=== PATIENT | female | born 1970 | race African-American/Black ===

== ENCOUNTER 2016-07-21 23:13 | Emergency (ER) | payer OTHER ==
[2016-07-21 23:28] VITALS: BP 147/85; PULSE 91; RESP 18; TEMP 98.2
[2016-07-22] MEDS ORDERED: KETOROLAC 60 MG/2 ML VIAL IM STA (00:02)
--- NOTE | 2016-07-22 00:06 | ED ---
General Adult HPI - General Chief complaint: Back Pain/Injury Stated complaint: back & leg pain Time Seen by Provider: 07/21/16 23:51 Source: patient Mode of arrival: ambulatory Limitations: no limitations - History of Present Illness Initial comments: Patient 46-year-old female seen in the past medical history for chronic low back pain who presents emergency room today with chief complaint of exacerbation of her chronic pain. Does admit to pain that radiates down to the right calf. States worse with certain movements. Denies any specific injury or trauma. Denies any bowel or bladder incontinence retention. Denies any saddle anesthesia. Patient denies any recent fever, chills, shortness of breath , chest pain, abdominal pain, nausea or vomiting, dysuria or hematuria, constipation or diarrhea, headaches or visual changes, or any other complaints. - Related Data Home Medications Medication Instructions Recorded Confirmed traMADol HCl [Ultram] 50 mg PO BID 10/30/14 01/11/16 HYDROcodone/APAP 7.5-325MG [[place]ale 1 tab PO Q8HR PRN 07/01/15 01/11/16 7.5-325] Naproxen [Naprosyn] 500 mg PO Q12HR PRN 07/01/15 01/11/16 Previous Rx's Medication Instructions Recorded Cyclobenzaprine [Flexeril] 5 mg PO TID #9 tablet 01/11/16 HYDROcodone/APAP 5-325MG [Dale 1 - 2 tab PO Q4H PRN #20 tab 01/11/16 5-325] methylPREDNISolone Dose Pack 4 mg PO DIRECTED #21 package 01/11/16 [Medrol Dose Pack] Cyclobenzaprine [Flexeril] 10 mg PO TID #20 tab 07/22/16 Dexamethasone 0.75 mg PO DIRECTED #12 tablet 07/22/16 Hydrocodone/Acetaminophen [[place]ale 1 each PO Q6HR PRN #20 tab 07/22/16 5-325] Ibuprofen [Motrin] 600 mg PO Q6HR PRN #40 day 07/22/16 Allergies Allergy/AdvReac Type Severity Reaction Status Date / Time No Known Allergies Allergy Verified 07/21/16 23:28 Review of Systems ROS Statement: Those systems with pertinent positive or pertinent negative responses have been documented in the HPI. ROS Other: All systems not noted in ROS Statement are negative. Past Medical History Past Medical History: Thyroid Disorder Additional Past Medical History / Comment(s): migraines, uterine fibroids, thyroid nodules, degenerative disks History of Any Multi-Drug Resistant Organisms: None Reported Additional Past Surgical History / Comment(s): laprascopic exam, spinal steroid injection 07/21/15 (pt notified Dr Bunn office) Past Anesthesia/Blood Transfusion Reactions: No Reported Reaction Past Psychological History: No Psychological Hx Reported Smoking Status: Current some day smoker Past Alcohol Use History: None Reported, Rare Additional Past Alcohol Use History / Comment(s): started smoking 1995, smokes 4 -5 cigarettes per day Past Drug Use History: None Reported - Past Family History Mother Family Medical History: No Reported History General Exam - General Exam Comments Initial Comments: General: The patient is awake and alert, in no distress, and does not appear acutely ill. Eye: Pupils are equal, round and reactive to light, extra-ocular movements are intact. No nystagmus. There is normal conjunctiva bilaterally. No signs of icterus. Ears, nose, mouth and throat: There are moist mucous membranes and no oral lesions. Neck: The neck is supple, there is no tenderness or JVD. Cardiovascular: There is a regular rate and rhythm. No murmur, rub or gallop is appreciated. Respiratory: Lungs are clear to auscultation, respirations are non-labored, breath sounds are equal. No wheezes, stridor, rales, or rhonchi. Musculoskeletal: Normal appearance of the thoracic, lumbar spine. No step- offs form is appreciated. Patient has mild tenderness lower lumbar spine paravertebrally to the right side. Strength 5/5. Sensation intact. Pulses equal bilaterally 2+. Neurological: A&O x 3. CN II-XII intact, There are no obvious motor or sensory deficits. Coordination appears grossly intact. Speech is normal. Skin: Skin is warm and dry and no rashes or lesions are noted. Psychiatric: Cooperative, appropriate mood & affect, normal judgment. Limitations: no limitations Course Vital Signs 07/21/16 23:26 Temperature 98.2 F Pulse Rate 91 Respiratory 18 Rate Blood Pressure 147/85 O2 Sat by Pulse 99 Oximetry Medical Decision Making - Medical Decision Making Is advised to use medications advised muscle relaxants and pain medicines may make her drowsy. Advised to follow-up family doctor she does admit she has an MRI scheduled next week. Disposition Clinical Impression: Acute exacerbation of chronic low back pain Disposition: HOME SELF-CARE Condition: Good Instructions: Chronic Back Pain (ED) Additional Instructions: Please use medication as discussed. Please follow-up with family doctor in the next 2 days of symptoms have not improved. Please return to emergency room if the symptoms increase or worsen or for any other concerns. Prescriptions: Cyclobenzaprine [Flexeril] 10 mg PO TID #20 tab Dexamethasone 0.75 mg PO DIRECTED #12 tablet Hydrocodone/Acetaminophen [Dale 5-325] 1 each PO Q6HR PRN #20 tab PRN Reason: Pain Ibuprofen [Motrin] 600 mg PO Q6HR PRN #40 day PRN Reason: Pain Time of Disposition: 00:05
== END 2016-07-22 00:17 | disposition home or self-care (01) ==
LOC: EC 23:13
DX: G89.29 Other chronic pain (principal); M54.5 Low back pain; Z79.899 Other long term (current) drug therapy; Z79.891 Long term (current) use of opiate analgesic; F17.210 Nicotine dependence, cigarettes, uncomplicated
CPT/HCPCS: 99283; 96372; J1885

== ENCOUNTER → 2016-07-26 | Outpatient (CLI) | payer OTHER ==
--- NOTE | 2016-07-26 10:01 | MR ---
EXAMINATION TYPE: MR lumbar spine wo/w con DATE OF EXAM: 07/26/2016 8:43 AM COMPARISON: Lumbar spine x-ray January 11, 2016. HISTORY: Disc disease per order. Low back pain causing pain into bilateral legs, right greater than l eft 8.4 years per patient. TECHNIQUE: Multiplanar, multisequence images of the lumbar spine is performed without and with IV contrast, util izing 14 mL intravenous MultiHance FINDINGS: Sagittal images of the lumbar spine show vertebral body heights and alignment to appear sat isfactory. Disc desiccation L4-L5 and L5-S1 levels is seen. Mild disc space narrowing L5-S1 level is redemonstrated. No large posterior disc herniations are seen on sagittal images. The conus medullaris is normal in position and signal ending at mid L1 vertebral body level. The bone marrow signal inte nsity is within normal limits. Some enhancement of the posterior L4 disc space is present, nonspecifi c finding as there is no adjacent ossific or soft tissue enhancement. Increased signal consistent wit h annular tear is present at this level. Survey images show 1.1 cm round low intense lesion in uterus likely fibroid on image 2 series 601. Th ere is 2.8 cm round low intense lesion left adnexa could reflect ovarian cyst. Sagittal survey shows round low intense lesions in the cervix likely reflecting nabothian cysts. Probable fibroids are conf irmed in the posterior superior myometrium on sagittal images with well-defined T2 hypointense lesion s present. Findings could be correlated with pelvic ultrasound if desired. Axial images show the T12-L1, L1-L2, and L2-L3 levels to appear within normal limits. Axial images at the L3-L4 level show broad-based central disc protrusion mildly effacing anterior the ye sac on axial image 13. Bilateral neural foramina are patent. Axial images at the L4-L5 level show mild facet arthropathy bilaterally. There is mild central disc p rotrusion which is enhancing. Spinal canal is fairly well-maintained. Bilateral neural foramina are p atent. Axial images at the L5-S1 level show moderate facet degenerative changes bilaterally. Spinal canal is preserved. Bilateral neural foramina remain patent. A 3.2 cm cystic lesion left adnexa is partially imaged on sagittal image 2. There are small thin-wall ed nonenhancing T2 hyperintense lesions consistent with simple cysts in both kidneys. IMPRESSION: Multilevel degenerative changes in the lower lumbar spine as detailed above. Nonspecific enhancement of posterior disc protrusion L4-L5 level is noted. Genitourinary findings as detailed abo ve suspicious for uterine fibroids and probable simple left ovarian cyst. Consider pelvic ultrasound confirmation.
== END | disposition home or self-care (01) ==
LOC: RADMRIMAIN 07:50
PROVIDERS: ATTEND Internal Medicine Rheumatology
DX: M51.26 Other intervertebral disc displacement, lumbar region (principal); M47.816 Spondylosis without myelopathy or radiculopathy, lumbar region
CPT/HCPCS: 72158; A9577

== ENCOUNTER 2017-02-03 01:12 | Emergency (ER) | payer OTHER ==
[2017-02-03] MEDS ORDERED: IPRATROPIUM-ALBUTEROL 3 ML NEB INHALATION STA (01:33)
[2017-02-03] MEDS ORDERED: HYDROcodone/APAP 5-325MG 1 EACH TAB PO STA (01:38)
--- NOTE | 2017-02-03 01:54 | ED ---
SOB HPI - General Chief Complaint: Shortness of Breath Stated Complaint: Chest tightness,TIFFANIE Time Seen by Provider: 02/03/17 01:32 Source: patient Mode of arrival: ambulatory Limitations: no limitations - History of Present Illness Initial Comments: 47-year-old male patient presented to emergency department today with complaints of shortness of breath and chest tightness. Patient states that over the last 4 days she has had nasal congestion and green nasal drainage. Patient states that yesterday morning she woke up coughing with chest tightness and wheezing. Patient states that she is coughing up yellow sputum. She states she does feel mildly short of breath. She states that she has felt chilled however denies any fever. She denies any history of lung problems, denies use of inhalers or nebulizers. States that she does smoke cigarettes. Patient denies any abdominal pain, nausea, vomiting, diarrhea, constipation, numbness, tingling, weakness, hematuria, headache, or visual changes. She does report low back pain but states this is chronic. - Related Data Previous Rx's Medication Instructions Recorded Hydrocodone/Acetaminophen [[place] 1 each PO Q6HR PRN #20 tab 07/22/16 5-325] Albuterol Sulfate [Proair Hfa] 1 - 2 puff INHALATION Q6HR PRN #1 02/03/17 inhaler Levofloxacin [Levaquin] 500 mg PO DAILY #10 tab 02/03/17 predniSONE 50 mg PO DAILY #5 tab 02/03/17 Allergies Allergy/AdvReac Type Severity Reaction Status Date / Time No Known Allergies Allergy Verified 02/03/17 01:19 Review of Systems ROS Statement: Those systems with pertinent positive or pertinent negative responses have been documented in the HPI. ROS Other: All systems not noted in ROS Statement are negative. Past Medical History Past Medical History: Thyroid Disorder Additional Past Medical History / Comment(s): migraines, uterine fibroids, thyroid nodules, degenerative disks History of Any Multi-Drug Resistant Organisms: None Reported Additional Past Surgical History / Comment(s): laprascopic exam, spinal steroid injection 07/21/15 (pt notified Dr Bunn office) Past Anesthesia/Blood Transfusion Reactions: No Reported Reaction Past Psychological History: No Psychological Hx Reported Smoking Status: Current some day smoker Past Alcohol Use History: None Reported Past Drug Use History: None Reported - Past Family History Mother Family Medical History: No Reported History General Exam Limitations: no limitations General appearance: alert, in no apparent distress Eye exam: Present: normal appearance, PERRL, EOMI. Absent: scleral icterus, conjunctival injection, periorbital swelling ENT exam: Present: normal exam, normal oropharynx, mucous membranes moist Respiratory exam: Present: normal lung sounds bilaterally, wheezes (Coarse expiratory wheezes noted throughout all posterior lung ceron). Absent: respiratory distress, rales, rhonchi, stridor Cardiovascular Exam: Present: normal rhythm, tachycardia, normal heart sounds. Absent: regular rate, systolic murmur, diastolic murmur, rubs, gallop, clicks GI/Abdominal exam: Present: soft, normal bowel sounds. Absent: distended, tenderness, guarding, rebound, rigid Back exam: Present: normal inspection Neurological exam: Present: alert, oriented X3, CN II-XII intact Psychiatric exam: Present: normal affect, normal mood Skin exam: Present: warm, dry, intact, normal color. Absent: rash Course Vital Signs 02/03/17 02/03/17 02/03/17 01:15 01:33 01:35 Temperature 97.8 F Pulse Rate 103 H 100 Respiratory 20 18 Rate Blood Pressure 136/81 O2 Sat by Pulse 96 Oximetry 02/03/17 02/03/17 02/03/17 01:52 02:04 04:47 Temperature 99.7 F H Pulse Rate 97 79 Respiratory 20 Rate Blood Pressure 119/66 O2 Sat by Pulse 97 Oximetry Medical Decision Making - Medical Decision Making 47-year-old female patient presents to emergency department today for evaluation of cough, congestion, and chest tightness. Labs were reviewed and did not show any acute abnormalities. Two-view chest x-ray was negative for any acute cardiopulmonary processes however did show 4 mm nodule on the left lung, patient has been advised for a follow-up study in to see her primary care physician for this. Patient discharged home with a prescription for albuterol inhaler, prednisone, and Levaquin. Patient was given IV Solu-Medrol and oral dose of Levaquin prior to discharge tonight. Patient instructed to follow up with her primary care physician for recheck in 1-2 days. Instructed to return here immediately for any new, worsening, or concerning symptoms. Patient verbalizes understanding and agrees with this plan. - Lab Data Result diagrams: 02/03/17 02:51 02/03/17 02:51 Lab Results 02/03/17 02/03/17 02/03/17 Range/Units 02:51 02:51 02:51 WBC 8.8 (3.8-10.6) k/uL RBC 5.12 (3.80-5.40) m/uL Hgb 14.3 (11.4-16.0) gm/dL Hct 45.6 (34.0-46.0) % MCV 89.0 (80.0-100.0) fL MCH 27.9 (25.0-35.0) pg MCHC 31.4 (31.0-37.0) g/dL RDW 15.3 (11.5-15.5) % Plt Count 291 (150-450) k/uL Neutrophils % 61 % Lymphocytes % 27 % Monocytes % 5 % Eosinophils % 4 % Basophils % 1 % Neutrophils # 5.3 (1.3-7.7) k/uL Lymphocytes # 2.4 (1.0-4.8) k/uL Monocytes # 0.5 (0-1.0) k/uL Eosinophils # 0.4 (0-0.7) k/uL Basophils # 0.1 (0-0.2) k/uL Sodium 141 (137-145) mmol/L Potassium 4.3 (3.5-5.1) mmol/L Chloride 105 (98-107) mmol/L Carbon Dioxide 24 (22-30) mmol/L Anion Gap 12 mmol/L BUN 14 (7-17) mg/dL Creatinine 0.70 (0.52-1.04) mg/dL Est GFR (MDRD) Af Amer >60 (>60 ml/min/1.73 sqM) Est GFR (MDRD) Non-Af >60 (>60 ml/min/1.73 sqM) Glucose 99 (74-99) mg/dL Calcium 10.3 H (8.4-10.2) mg/dL Total Bilirubin 0.6 (0.2-1.3) mg/dL AST 15 (14-36) U/L ALT 27 (9-52) U/L Alkaline Phosphatase 85 (38-126) U/L Troponin I <0.012 (0.000-0.034) ng/mL Total Protein 7.7 (6.3-8.2) g/dL Albumin 4.6 (3.5-5.0) g/dL - Radiology Data Radiology results: report reviewed, image reviewed Two-view x-ray of the test did show the lungs are free of focal infiltrate. Possible small 4 mm left apical lung nodule between the posterior second third ribs. Pleural spaces unremarkable. No effusion or pneumothorax. Heart is unremarkable. No cardiomegaly. Mediastinum is unremarkable. Bones and joints slight rightward curvature of the thoracolumbar spine that may be in part positional. Impression by Dr. Crocker shows no acute process seen within the chest. Possible 4 mm left apical lung nodule versus overlying artifact or soft tissue shadow, which could be reevaluated follow-up radiographs or CT electively. Disposition Clinical Impression: Acute bronchitis Disposition: HOME SELF-CARE Condition: Good Instructions: Acute Bronchitis (ED) Additional Instructions: Complete antibiotic and steroid prescriptions in full. Use inhaler as needed. Follow up with her primary care physician one to 2 days for recheck. Return immediately for any new, worsening, or concerning symptoms. Prescriptions: Albuterol Sulfate [Proair Hfa] 1 - 2 puff INHALATION Q6HR PRN #1 inhaler PRN Reason: Wheezing Levofloxacin [Levaquin] 500 mg PO DAILY #10 tab predniSONE 50 mg PO DAILY #5 tab Referrals: Yamil Gongora DO [Primary Care Provider] - 1-2 days Time of Disposition: 04:26
--- NOTE | 2017-02-03 02:40 | XR ---
EXAM: XR Chest, 2 Views CLINICAL HISTORY: Reason: difficulty breathing TECHNIQUE: Frontal and lateral views of the chest. COMPARISON: No relevant prior studies available. FINDINGS: Artifacts: Several EKG wires and leads overlie the chest. Additional artifact from hair or clothing overlying the lower neck bilaterally. Lungs: The lungs are free of focal infiltrate. Possible small 4 mm left apical lung nodule between the posterior second and third ribs. Pleural space: Unremarkable. No effusion or pneumothorax. Heart: Unremarkable. No cardiomegaly. Mediastinum: Unremarkable. Bones/joints: Slight rightward curvature of the thoracolumbar spine that may in part be positional. IMPRESSION: 1. No acute process seen within the chest. 2. Possible 4 mm left apical lung nodule versus overlying artifact or soft tissue shadow, which could be reevaluated by follow-up radiographs or CT electively.
[2017-02-03 03:27] LABS: ALT 27 U/L (9-52); AST 15 U/L (14-36); Alkaline Phosphatase 85 U/L (38-126); Anion Gap 12 mmol/L; Basophils # (A) 0.1 k/uL (0-0.2); Basophils % (A) 1 %; Blood Urea Nitrogen 14 mg/dL (7-17); CH 28.5; CHCM 32.3; Calcium 10.3 mg/dL (8.4-10.2); Carbon Dioxide 24 mmol/L (22-30); Chloride 105 mmol/L (98-107); Eosinophils # (A) 0.4 k/uL (0-0.7); Eosinophils % (A) 4 %; Glucose 99 mg/dL (74-99); HCT 45.6 % (34.0-46.0); HDW 2.58; HGB 14.3 gm/dL (11.4-16.0); Luc # (Auto) 0.16; Luc % (Auto) 2; Lymphocytes # (A) 2.4 k/uL (1.0-4.8); Lymphocytes % (A) 27 %; MCH 27.9 pg (25.0-35.0); MCHC 31.4 g/dL (31.0-37.0); Mean Platelet Volume 7.2; Monocytes # (A) 0.5 k/uL (0-1.0); Monocytes % (A) 5 %; Neutrophils # (A) 5.3 k/uL (1.3-7.7); Neutrophils % (A) 61 %; Non-African American GFR(MDRD) >60 (>60 ml/min/1.73 sqM); Potassium 4.3 mmol/L (3.5-5.1); RBC 5.12 m/uL (3.80-5.40); RDW 15.3 % (11.5-15.5); Sodium 141 mmol/L (137-145); Total Bilirubin 0.6 mg/dL (0.2-1.3); Total Protein 7.7 g/dL (6.3-8.2); WBC 8.8 k/uL (3.8-10.6); WBC (Perox) 8.91
[2017-02-03] MEDS ORDERED: methylPREDNISolone SOD SUCCI 125 MG/2 ML VIAL IV STA (04:25)
[2017-02-03] MEDS ORDERED: LEVOFLOXACIN 500 MG TAB PO STA (04:27)
[2017-02-03 04:48] VITALS: BP 119/66; PULSE 79; RESP 20
[2017-02-03 05:26] VITALS: TEMP 98.7
== END 2017-02-03 04:59 | disposition home or self-care (01) ==
LOC: EC 01:12
DX: J20.9 Acute bronchitis, unspecified (principal); R91.1 Solitary pulmonary nodule; F17.200 Nicotine dependence, unspecified, uncomplicated
CPT/HCPCS: 36415; 94640; 80053; 84484; 85025; 87040; 71020; 99285; 96374; J2930

== ENCOUNTER → 2017-07-08 | Outpatient (CLI) | payer OTHER ==
[2017-07-08 11:40] LABS: Blood Urea Nitrogen 13 mg/dL (7-17)
--- NOTE | 2017-07-08 14:40 | CT ---
EXAMINATION TYPE: CT chest w con DATE OF EXAM: 07/08/2017 COMPARISON: Chest radiograph dated 02/03/2017 HISTORY: Solitary pulmonary nodule CT DLP: 234.0 mGycm. Automated Exposure Control for Dose Reduction was Utilized. TECHNIQUE: CT scan of the thorax is performed following with IV Contrast, patient injected with 100 mL of Omnipaque 300. FINDINGS: LUNGS: The lungs are grossly clear, there is no concerning parenchymal mass or nodule identified. T here is no pleural effusion or pneumothorax seen. The tracheobronchial tree is patent. MEDIASTINUM: There are no greater than 1 cm hilar or mediastinal lymph nodes. No pericardial effusi on is seen. Heart is upper limits of normal in size. Minimal coronary calcifications are seen within the left anterior descending coronary artery. OTHER: Subcentimeter area of hypoattenuation measuring approximately 6 mm is seen within the left thy roid lobe. Dystrophic calcification is seen within the right thyroid lobe. Small hiatal hernia is inc identally noted. Fluid attenuated 1 cm right renal cyst is seen in the mid pole. Wedge-shaped area of hypoattenuation is seen within segment IVb of the liver, most commonly related to focal fatty infilt ration. Incidental note is made of a bovine configuration of the aortic arch, normal variant. IMPRESSION: 1. No pulmonary nodule, focal consolidation or pleural effusion. Minimal bibasilar subsegmental depen dent atelectasis. 2. Incidentally noted right renal cyst, heterogenous thyroid gland, focal fatty infiltration of the l iver, and minimal coronary artery calcifications.
== END | disposition home or self-care (01) ==
LOC: RADCTMAIN 11:07
PROVIDERS: ATTEND Family Medicine
DX: J98.11 Atelectasis (principal); I25.10 Atherosclerotic heart disease of native coronary artery without angina pectoris
CPT/HCPCS: 82565; 84520; 71260; 36415; Q9967; 77067

== ENCOUNTER → 2017-07-08 | Outpatient (CLI) | payer OTHER ==
--- NOTE | 2017-07-12 10:06 | MM ---
Reason for exam: screening (asymptomatic). Last mammogram was performed 2 years and 1 month ago. History: Family history of breast cancer in maternal grandmother at age 42 and breast cancer in 2 cousins. Physical Findings: A clinical breast exam by your physician is recommended on an annual basis and results should be correlated with mammographic findings. MG Screening Mammo w CAD Bilateral CC and MLO view(s) were taken. Prior study comparison: June 16, 2015, bilateral MG 3d screening mammo w/cad. The breast tissue is extremely dense which could obscure a lesion on mammography. No significant changes when compared with prior studies. ASSESSMENT: Benign, BI-RAD 2 RECOMMENDATION: Routine screening mammogram of both breasts in 1 year.
== END | disposition home or self-care (01) ==
LOC: RADMAMWWP 12:08
PROVIDERS: ATTEND Obstetrics & Gynecology
DX: Z12.31 Encounter for screening mammogram for malignant neoplasm of breast (principal)
CPT/HCPCS: 77067

== ENCOUNTER 2018-03-23 21:49 | Emergency (ER) | payer OTHER ==
[2018-03-23 22:12] VITALS: RESP 18
--- NOTE | 2018-03-23 23:28 | ED ---
ENT HPI - General Chief complaint: Dental/Oral Stated complaint: dental pain Time Seen by Provider: 03/23/18 22:49 Source: patient Mode of arrival: ambulatory Limitations: no limitations - History of Present Illness Initial comments: This patient is a 48-year-old woman presenting with complaint of left sided dental pain. She has both upper and lower pain. Patient states that she has had a bad tooth and left upper going on for number weeks. She states that the left mandibular she had lost a filling around 2 weeks ago in this area and pain a number days after that. She was seen by dental clinic but states that due to an insurance issue she could not have any work done and they will referring her to another clinic. She has been taking 5 days amoxicillin but is having pains. She is not having any increased swelling. No other symptoms. MD complaint: tooth pain -: week(s) Severity: severe Quality: aching Consistency: constant Improves with: none Worsens with: none Context- Dental: history of dental caries Associated Symptoms: toothache - Related Data Home Medications Medication Instructions Recorded Confirmed Amoxicillin 500 mg PO TID 03/23/18 03/23/18 oxyCODONE-APAP 10-325MG [Percocet 1 tab PO DAILY PRN 03/23/18 03/23/18 10-325 mg] Previous Rx's Medication Instructions Recorded Ibuprofen [Motrin] 600 mg PO Q8HR PRN #20 tab 03/23/18 Allergies Allergy/AdvReac Type Severity Reaction Status Date / Time No Known Allergies Allergy Verified 03/23/18 22:42 Review of Systems ROS Statement: Those systems with pertinent positive or pertinent negative responses have been documented in the HPI. ROS Other: All systems not noted in ROS Statement are negative. Constitutional: Denies: fever, chills Eyes: Denies: eye pain, vision change ENT: Denies: ear pain Respiratory: Denies: cough, dyspnea Cardiovascular: Denies: chest pain, palpitations Skin: Denies: rash Neurological: Denies: headache Past Medical History Past Medical History: Thyroid Disorder Additional Past Medical History / Comment(s): migraines, uterine fibroids, thyroid nodules, degenerative disks History of Any Multi-Drug Resistant Organisms: None Reported Additional Past Surgical History / Comment(s): laprascopic exam, spinal steroid injection 07/21/15 (pt notified Dr Bunn office) Past Anesthesia/Blood Transfusion Reactions: No Reported Reaction Past Psychological History: No Psychological Hx Reported Smoking Status: Current some day smoker Past Alcohol Use History: None Reported Past Drug Use History: None Reported - Past Family History Mother Family Medical History: No Reported History General Exam Limitations: no limitations General appearance: alert, in no apparent distress Eye exam: Present: normal appearance, EOMI. Absent: scleral icterus, conjunctival injection, nystagmus, periorbital swelling, periorbital tenderness ENT exam: Present: mucous membranes moist, other (The patient does have extensive caries to tooth #13. There is also caries involving #17. There is no abscess. No erythema of the gingiva. No palpable abscess or sublingual fullness. No neck findings.) Neck exam: Present: normal inspection, full ROM. Absent: tenderness, lymphadenopathy Course Vital Signs 03/23/18 22:10 Temperature 98.2 F Pulse Rate 80 Respiratory 18 Rate Blood Pressure 156/92 O2 Sat by Pulse 100 Oximetry Disposition Clinical Impression: Toothache, Caries Disposition: HOME SELF-CARE Condition: Good Instructions: Dental Caries (ED), Toothache (ED) Prescriptions: Ibuprofen [Motrin] 600 mg PO Q8HR PRN #20 tab PRN Reason: Pain Is patient prescribed a controlled substance at d/c from ED?: No When asked, does pt state using other controlled substances?: No If opioid is for acute pain is fill amount 7 days or less?: Yes Referrals: Rosamaria Winkler MD [Primary Care Provider] - 1-2 days
[2018-03-23] MEDS ORDERED: IBUPROFEN 600 MG TAB PO STA (23:38)
[2018-03-23] MEDS ORDERED: ACET/COD 300 MG/30 MG STARTER PACK 6 TAB BTL PO STA (23:38)
[2018-03-24 00:06] VITALS: BP 148/80; PULSE 72; TEMP 98
== END 2018-03-24 00:05 | disposition home or self-care (01) ==
LOC: EC 21:49
DX: K02.9 Dental caries, unspecified (principal); F17.200 Nicotine dependence, unspecified, uncomplicated
CPT/HCPCS: 99282

== ENCOUNTER → 2018-03-24 | Outpatient (CLI) | payer OTHER ==
--- NOTE | 2018-03-24 13:26 | US ---
EXAMINATION TYPE: US thyroid st tissue head/neck DATE OF EXAM: 03/24/2018 COMPARISON: NONE CLINICAL HISTORY: E04.1 NODULE,E01.0, THYROMEGALY,R13.13 PHARYNGEAL DYSPHAGIA. Pt states recent weigh t gain and difficulty swallowing GLAND SIZE: Right Lobe: 4.1 x 2.0 x 1.9 cm Overall Parenchyma: heterogenous Left Lobe: 4.9 x 1.8 x 2.0 cm Overall Parenchyma: heterogeneous Isthmus Thickness: 0.5 cm NODULES RIGHT: # of nodules measured on right: 1 1. 2.6 X 1.5 x 1.7 cm isoechoic solid nodule at the lower pole with well-defined margins; This nod ule is wider than tall and shows intranodular vascularity. Prior size: No prior LEFT: # of nodules measured on left: 2 1. 2.5 X 1.6 x 2.0 cm hypoechoic solid nodule at the lower pole with well-defined margins; This no dule is wider than tall and shows intranodular vascularity. Prior size: No prior 2. 0.6 X 0.6 x 0.8 cm isoechoic solid nodule at the upper pole with poorly defined margins; This no dule is wider than tall and shows intranodular vascularity. Prior size: No prior Bilateral neck scanned, no evidence of lymphadenopathy, 5mm node visualized. Large nodule on right an d left lobe with smaller, sub-centimeter nodule also on left. IMPRESSION: 1. Inferior pole left lobe thyroid vascular solid nodule. Consider additional workup, neoplasm is not excluded. 2. Solid nodule right lobe thyroid with some peripheral vascular increased markings.
== END | disposition home or self-care (01) ==
LOC: RADUSWWP 12:26
PROVIDERS: ATTEND Family Medicine
DX: E04.1 Nontoxic single thyroid nodule (principal)
CPT/HCPCS: 76536

== ENCOUNTER → 2018-11-14 | Outpatient (CLI) | payer OTHER ==
--- NOTE | 2018-11-14 10:46 | USB ---
Reason for exam: additional evaluation requested from prior study. History: Family history of breast cancer in maternal grandmother at age 42 and breast cancer in 2 cousins. US Breast BILAT Right complete breast ultrasound includes all four quadrants, the retroareolar region and axilla. Finding demonstrates no cystic or solid lesion seen. Left complete breast ultrasound includes all four quadrants, the retroareolar region and axilla. Finding demonstrates no cystic or solid lesion seen. These results were verbally communicated with the patient and result sheet given to the patient on 11/14/18. ASSESSMENT: Negative, BI-RAD 1 RECOMMENDATION: Routine screening mammogram of both breasts in 1 year.
--- NOTE | 2018-11-14 10:46 | MM ---
Reason for exam: additional evaluation requested from prior study. Last mammogram was performed 1 year and 4 months ago. History: Family history of breast cancer in maternal grandmother at age 42 and breast cancer in 2 cousins. Physical Findings: Nurse did not find any significant physical abnormalities on exam. MG 3D Diag Mammo W/Cad TROY Bilateral CC and MLO view(s) were taken. Spot compression MLO view(s) were taken of the right breast. Prior study comparison: July 08, 2017, bilateral MG screening mammo w CAD. June 16, 2015, bilateral MG 3d screening mammo w/cad. There is no discrete abnormality. No significant new findings when compared with previous films. These results were verbally communicated with the patient and result sheet given to the patient on 11/14/18. ASSESSMENT: Benign, BI-RAD 2 RECOMMENDATION: Routine screening mammogram of both breasts in 1 year.
--- NOTE | 2018-11-14 11:53 | US ---
EXAMINATION TYPE: US transvaginal DATE OF EXAM: 11/14/2018 COMPARISON: NONE CLINICAL HISTORY: N92.6 IRREGULAR MENSTRUAL CYCLE. TECHNIQUE: Transvaginal (TV). Date of LMP: 11/08/2018 EXAM MEASUREMENTS: Uterus: 8.8 x 5.1 x 5.9 cm Endometrial Stripe: 0.8 cm Right Ovary: 3.9 x 2.1 x 2.4 cm Left Ovary: 2.1 x 1.9 x 2.9 cm 1. Uterus: bulky and heterogeneous, at least one fibroid posterior/right measures 1.5 x 2.1 x 1.9. 2. Endometrium: wnl 3. Right Ovary: dominant follicle measures 1.1 cm. 4. Left Ovary: wnl 5. Bilateral Adnexa: wnl 6. Posterior cul-de-sac: no free fluid IMPRESSION: Fibroid uterus
== END ==
LOC: RADUSWWP 08:47
PROVIDERS: ATTEND Family Medicine
DX: N64.52 Nipple discharge (principal); D25.9 Leiomyoma of uterus, unspecified
CPT/HCPCS: 77066; 76830; 76641; G0279; 77062

== ENCOUNTER → 2021-09-04 | Outpatient (CLI) | payer OTHER ==
--- NOTE | 2021-09-04 14:48 | XR ---
EXAMINATION TYPE: XR lumbar spine 2 or 3V DATE OF EXAM: 09/04/2021 CLINICAL HISTORY: Low back pain. TECHNIQUE: Frontal and lateral images of the lumbar spine are obtained. COMPARISON: Lumbar spine x-ray January 11, 2016 FINDINGS: There are 5 lumbar type vertebral bodies demonstrated. Mild to moderate disc space narrowi ng L5-S1 level again seen. Vertebral body heights are maintained. Facet arthropathy lower lumbar leve ls. Overlying soft tissue is unremarkable. IMPRESSION: As above.
== END | disposition home or self-care (01) ==
LOC: RADXRMAIN 13:57
PROVIDERS: ATTEND Internal Medicine Rheumatology
DX: M54.50 Low back pain, unspecified (principal)
CPT/HCPCS: 72100

== ENCOUNTER → 2021-09-07 | Outpatient (CLI) | payer OTHER ==
--- NOTE | 2021-09-08 15:07 | MM ---
Reason for exam: screening (asymptomatic). Last mammogram was performed 2 years and 10 months ago. History: Patient is postmenopausal. Family history of breast cancer in maternal grandmother at age 42 and breast cancer in 2 cousins. Physical Findings: A clinical breast exam by your physician is recommended on an annual basis and results should be correlated with mammographic findings. MG 3D Screening Mammo W/Cad Bilateral CC and MLO view(s) were taken. Prior study comparison: November 14, 2018, bilateral MG 3d diag mammo w/cad TROY. July 08, 2017, bilateral MG screening mammo w CAD. The breast tissue is heterogeneously dense. This may lower the sensitivity of mammography. No significant changes when compared with prior studies. ASSESSMENT: Benign, BI-RAD 2 RECOMMENDATION: Routine screening mammogram of both breasts in 1 year.
== END | disposition home or self-care (01) ==
LOC: RADMAMWWP 14:49
PROVIDERS: ATTEND Family Medicine
DX: Z12.31 Encounter for screening mammogram for malignant neoplasm of breast (principal)
CPT/HCPCS: 77063; 77067

== ENCOUNTER → 2022-05-10 | Outpatient (CLI) | payer OTHER ==
--- NOTE | 2022-05-11 21:24 | MR ---
EXAMINATION TYPE: MR lumbar spine wo con DATE OF EXAM: 05/10/2022 1:38 PM COMPARISON: 07/26/2016 CLINICAL INDICATION:Female, 52 years old with history of pain TECHNIQUE: Multi planar, multi sequence imaging was performed utilizing: T1-weighted, T2-weighted, a nd turbo inversion recovery imaging of the lumbar spine. IV Contrast: None. FINDINGS: Alignment: The lumbar vertebral bodies have preserved heights with grade 1 anterolisthesis of L5 on S 1. Cord: The conus medullaris and the distal spinal cord appear unremarkable with regards to their signa l intensity and morphology. Bones/Discs: Mild increased inversion recovery signal in the left pedicle of L5. Multilevel degenerat owen disc disease is noted and most pronounced at the L5-S1. Multilevel disc desiccation is present. L1-L2: No evidence of significant spinal canal stenosis or neural foraminal stenosis. L2-L3: No evidence of significant spinal canal stenosis or neural foraminal stenosis. L3-L4: No evidence of significant spinal canal stenosis or neural foraminal stenosis. L4-L5: No evidence of significant spinal canal stenosis or neural foraminal stenosis. L5-S1: Mild disc uncovering without significant spinal canal or neural foraminal stenosis. Other findings: Bilateral renal cysts that are high T2 signal. IMPRESSION: 1. No definitive evidence of disc herniation or significant spinal canal stenosis. Findings are not significantly changed from 2017. 2. Grade 1 anterolisthesis of L5 on S1 with mild L5 left pedicle bony edema. Findings likely represe nting stress reaction.
== END | disposition home or self-care (01) ==
LOC: RADMRIMAIN 13:03
PROVIDERS: ATTEND Family Medicine
DX: M43.17 Spondylolisthesis, lumbosacral region (principal); M54.41 Lumbago with sciatica, right side; M51.9 Unspecified thoracic, thoracolumbar and lumbosacral intervertebral disc disorder; G89.29 Other chronic pain
CPT/HCPCS: 72148

== ENCOUNTER 2023-08-25 09:01 | Emergency (ER) | payer OTHER ==
--- NOTE | 2023-08-25 09:18 | ED ---
ENT HPI - General Chief complaint: ENT Stated complaint: Ear Pain Time Seen by Provider: 08/25/23 09:15 Source: patient, RN notes reviewed Mode of arrival: ambulatory Limitations: no limitations - History of Present Illness Initial comments: 53-year-old female presents emergency department chief complaint of bilateral ear fullness and pain. Patient states that she had upper respiratory symptoms last week with runny nose, cough, congestion. Over the last 4 days patient has been experiencing ear fullness, pressure, pain, and bilateral ears have been expressing clear discharge. She denies fevers, shortness of breath. - Related Data Home Medications Medication Instructions Recorded Confirmed Amoxicillin 500 mg PO TID 03/23/18 03/23/18 oxyCODONE-APAP 10-325MG [Percocet 1 tab PO DAILY PRN 03/23/18 03/23/18 10-325 mg] Previous Rx's Medication Instructions Recorded Ibuprofen [Motrin] 600 mg PO Q8HR PRN #20 tab 03/23/18 Allergies Allergy/AdvReac Type Severity Reaction Status Date / Time No Known Allergies Allergy Verified 03/23/18 22:42 Review of Systems ROS Statement: Those systems with pertinent positive or pertinent negative responses have been documented in the HPI. ROS Other: All systems not noted in ROS Statement are negative. Past Medical History Past Medical History: Thyroid Disorder Additional Past Medical History / Comment(s): migraines, uterine fibroids, thyroid nodules, degenerative disks History of Any Multi-Drug Resistant Organisms: None Reported Additional Past Surgical History / Comment(s): laprascopic exam, spinal steroid injection 07/21/15 (pt notified Dr Bunn office) Past Anesthesia/Blood Transfusion Reactions: No Reported Reaction Past Psychological History: No Psychological Hx Reported Smoking Status: Current every day smoker Past Alcohol Use History: None Reported Past Drug Use History: None Reported - Past Family History Mother Family Medical History: No Reported History General Exam Limitations: no limitations General appearance: alert, in no apparent distress Head exam: Present: atraumatic, normocephalic, normal inspection Expanded TM/Canal exam: Loss of Landmarks: Left TM, Right TM (bilateral canal edema), Foreign Body: Right TM, Mastoid Tenderness: Right TM, Canal Tenderness: Right TM, Left TM Neck exam: Present: normal inspection. Absent: tenderness, meningismus, lymphadenopathy Respiratory exam: Present: normal lung sounds bilaterally. Absent: respiratory distress, wheezes, rales, rhonchi, stridor Cardiovascular Exam: Present: regular rate, normal rhythm, normal heart sounds. Absent: systolic murmur, diastolic murmur, rubs, gallop, clicks GI/Abdominal exam: Present: soft, normal bowel sounds. Absent: distended, tenderness, guarding, rebound, rigid Extremities exam: Present: normal inspection, full ROM, normal capillary refill. Absent: tenderness, pedal edema, joint swelling, calf tenderness Back exam: Present: normal inspection Neurological exam: Present: alert, oriented X3, CN II-XII intact Psychiatric exam: Present: normal affect, normal mood Skin exam: Present: warm, dry, intact, normal color. Absent: rash Course Vital Signs 08/25/23 09:13 Temperature 98.6 F Pulse Rate 86 Respiratory 18 Rate Blood Pressure 167/105 O2 Sat by Pulse 97 Oximetry Medical Decision Making - Medical Decision Making Was pt. sent in by a medical professional or institution (, PA, BOAT WORKER, urgent care, hospital, or longterm...) When possible be specific @ -No Did you speak to anyone other than the patient for history (EMS, parent, family, police, friend...)? What history was obtained from this source @ -No Did you review nursing and triage notes (agree or disagree)? Why? @ -I reviewed and agree with nursing and triage notes Were old charts reviewed (outside hosp., previous admission, EMS record, old EKG, old radiological studies, urgent care reports/EKG's, longterm records)? Report findings @ -No old charts were reviewed Differential Diagnosis (chest pain, altered mental status, abdominal pain women, abdominal pain men, vaginal bleeding, weakness, fever, dyspnea, syncope, headache, dizziness, GI bleed, back pain, seizure, CVA, palpatations, mental health, musculoskeletal)? @ -MDM differential viral URI, otitis media, otitis externa, mastoiditis, chronic otitis media EKG interpreted by me (3pts min.). @ -none X-rays interpreted by me (1pt min.). @ -None done CT interpreted by me (1pt min.). @ -None done U/S interpreted by me (1pt. min.). @ -None done What testing was considered but not performed or refused? (CT, X-rays, U/S, labs)? Why? @ -None What meds were considered but not given or refused? Why? @ -None Did you discuss the management of the patient with other professionals (professionals i.e. , PA, BOAT WORKER, lab, RT, psych nurse, social media community manager, corporate lawyer, teacher, learning officer, residential case manager)? Give summary @ -Attending physician, Dr. Cook also examined patient's ears. Was smoking cessation discussed for >3mins.? @ -No Was critical care preformed (if so, how long)? @ -No Were there social determinants of health that impacted care today? How? (Homelessness, low income, unemployed, alcoholism, drug addiction, transportation, low edu. Level, literacy, decrease access to med. care, half-way, rehab)? @ -No Was there de-escalation of care discussed even if they declined (Discuss DNR or withdrawal of care, Hospice)? DNR status @ -No What co-morbidities impacted this encounter? (DM, HTN, Smoking, COPD, CAD, Cancer, CVA, ARF, Chemo, Hep., AIDS, mental health diagnosis, sleep apnea, morbid obesity)? @ -None Was patient admitted / discharged? Hospital course, mention meds given and route, prescriptions, significant lab abnormalities, going to OR and other pertinent info. @ -Discharged. 53-year-old female presents with bilateral ear pain. Patient's vital stable, on physical exam bilateral edematous canals with difficult direct visualization of TMs. Symptoms and presentation most likely secondary to otitis externa. Patient given antibiotic eardrops in ED and sent home with drops. Patient instructed to follow-up with ENT in the next week to 2 weeks for further evaluation after antibiotic drops. patient negative for flu Louise, COVID, RSV. Undiagnosed new problem with uncertain prognosis? @ -No Drug Therapy requiring intensive monitoring for toxicity (Heparin, Nitro, Insulin, Cardizem)? @ -No Were any procedures done? @ -No Diagnosis/symptom? @ -otitis externa Acute, or Chronic, or Acute on Chronic? @ -Acute Uncomplicated (without systemic symptoms) or Complicated (systemic symptoms)? @ -Uncomplicated Side effects of treatment? @ -No Exacerbation, Progression, or Severe Exacerbation? @ -No Poses a threat to life or bodily function? How? (Chest pain, USA, SD, pneumonia, PE, COPD, DKA, ARF, appy, cholecystitis, CVA, Diverticulitis, Homicidal, Suicidal, threat to staff... and all critical care pts) @ -No - Lab Data Lab Results 08/25/23 Range/Units 09:37 Influenza Type A (PCR) Not Detected (Not Detectd) Influenza Type B (PCR) Not Detected (Not Detectd) RSV (PCR) Not Detected (Not Detectd) SARS-CoV-2 (PCR) Not Detected (Not Detectd) Disposition Clinical Impression: Otitis externa of both ears Narrative: Please return to the Emergency Department if symptoms worsen or any other concerns. You are to use antibiotic eardrops at home, 4 drops in each ear 2 times a day. Referral to ENT attached, please make an appointment in the next 7 to 10 days for further evaluation. Disposition: HOME SELF-CARE Condition: Good Instructions (If sedation given, give patient instructions): Ear Infection (ED) Is patient prescribed a controlled substance at d/c from ED?: No Referrals: Rosamaria Winkler MD [Primary Care Provider] - 1-2 days Robert Michel MD [STAFF PHYSICIAN] - 1-2 days
[2023-08-25 09:26] VITALS: RESP 18; TEMP 98.6
[2023-08-25] MEDS: CIPROFLOXACIN-DEXAMETH 0.3-0.1% DROPS 7.5 ML BTL BOTH EARS STA (10:10)
[2023-08-25 11:09] VITALS: BP 150/89; PULSE 81
== END 2023-08-25 10:41 | disposition home or self-care (01) ==
LOC: EC 09:01
DX: H66.93 Otitis media, unspecified, bilateral (principal); F17.200 Nicotine dependence, unspecified, uncomplicated; Z20.822 Contact with and (suspected) exposure to COVID-19
CPT/HCPCS: 87636; 99283